=== PATIENT | male | born 1945 | race Caucasian/White ===

== ENCOUNTER → 2018-05-18 | Outpatient (CLI) | payer MEDICARE, OTHER | LOC: M.ULTRA 14:44 | DX: K11.20 Sialoadenitis, unspecified (principal); R59.0 Localized enlarged lymph nodes ==

== ENCOUNTER 2018-07-06 17:10 | Emergency (ER) | payer MEDICARE, OTHER ==
[~2018-07-06] VITALS: Ht 167.6 cm; Wt 113.4 kg
[2018-07-06] MEDS ORDERED: JARDIANCE10 MG PO (17:28)
[2018-07-06] MEDS ORDERED: INSULIN (17:29)
[2018-07-06] MEDS ORDERED: METFORMIN HCL500 MG PO (17:29)
[2018-07-06] MEDS ORDERED: [UNRECOGNIZED DRUG - REMARK] (17:29)
[2018-07-06] MEDS ORDERED: KEFLEX500 M1 PO (18:05)
[2018-07-06 18:30] VITALS: BP 140/73
== END 2018-07-06 18:30 | disposition home or self-care (01) ==
LOC: M.ERS 17:10
DX: S61.012A Laceration without foreign body of left thumb without damage to nail, initial encounter (principal); Z23 Encounter for immunization; E11.9 Type 2 diabetes mellitus without complications; E66.01 Morbid (severe) obesity due to excess calories; Z68.41 Body mass index [BMI] 40.0-44.9, adult; Z79.4 Long term (current) use of insulin; W31.89XA Contact with other specified machinery, initial encounter; Y92.89 Other specified places as the place of occurrence of the external cause; Y93.89 Activity, other specified; Y99.8 Other external cause status

== ENCOUNTER → 2018-07-27 | Outpatient (CLI) | payer MEDICARE, OTHER ==
[~2018-07-27] MED LIST: INSULIN; JARDIANCE10 MG PO; KEFLEX500 M1 PO; METFORMIN HCL500 MG PO; [UNRECOGNIZED DRUG - REMARK]
== END ==
LOC: M.ULTRA 12:58
DX: B35.1 Tinea unguium (principal); L60.0 Ingrowing nail; I73.9 Peripheral vascular disease, unspecified; E11.40 Type 2 diabetes mellitus with diabetic neuropathy, unspecified

== ENCOUNTER 2018-11-13 15:30 | Emergency (ER) | payer MEDICARE, OTHER | END 2018-11-13 16:31 | disposition home or self-care (01) | LOC: M.ERS 15:30 | DX: S90.812A Abrasion, left foot, initial encounter (principal); E11.9 Type 2 diabetes mellitus without complications; Z79.899 Other long term (current) drug therapy; Z79.84 Long term (current) use of oral hypoglycemic drugs; W01.198A Fall on same level from slipping, tripping and stumbling with subsequent striking against other object, initial encounter; Y93.89 Activity, other specified; Y92.89 Other specified places as the place of occurrence of the external cause; Y99.8 Other external cause status ==